=== PATIENT | female | born 1990 | race African-American/Black ===

== ENCOUNTER 2017-04-05 21:16 | Emergency (ER) | payer OTHER ==
[~2017-04-05] VITALS: Ht 157.5 cm; Wt 62.0 kg
[2017-04-06] MEDS ORDERED: SODIUM CHLORIDE 0.9% 1,000 ML IV ONE (06:20)
[2017-04-06] MEDS ORDERED: ONDANSETRON HCL 4MG/2ML VIAL IV STA (06:20)
[2017-04-06] MEDS ORDERED: MAGNESIUM/ALUMINUM HYDROXIDE/SIMETHICONE 30ML UDC PO STA (06:38)
[2017-04-06] MEDS ORDERED: FAMOTIDINE 20MG/2ML VIAL IV STA (06:38)
[2017-04-06 06:41] LABS: BASOPHILS % 0.8 % (0.0-2.0); EOSINOPHILS % 0.7 % (0.0-5.0); HEMATOCRIT. 39.8 % (36.0-48.0); HEMOGLOBIN. 13.6 g/dL (12.0-16.0); LYMPHOCYTES % 49.6 % (20.0-50.0); MEAN CORPUSCULAR HEMOGLOBIN 29.3 pg (28.0-32.0); MEAN PLATELET VOLUME 9.4 fl (7.4-10.4); MONOCYTES % 11.3 % (2.0-8.0); NEUTROPHILS % 37.6 % (40.0-76.0); PLATELET 196 x1000/uL (130-400); RED BLOOD CELL COUNT 4.63 mill/uL (4.2-5.4)
[2017-04-06 06:48] LABS: CHLORIDE 104 mEq/L (98-107); INR 1.1
[2017-04-06 06:57] LABS: CARBON DIOXIDE 26 mEq/L (21-32)
[2017-04-06 07:09] LABS: CLARITY URINE CLOUDY (CLEAR); COLOR URINE DARK YELLOW (YELLOW); KETONES URINE 3+ (NEGATIVE); LEUKOCYTE ESTERASE URINE TRACE (NEGATIVE); NITRITE URINE NEGATIVE (NEGATIVE); OCCULT BLOOD URINE NEGATIVE (NEGATIVE); PH URINE 5.5 (4.5-8.0); PROTEIN URINE 1+ (NEGATIVE); SPECIFIC GRAVITY URINE 1.035 (1.005-1.030)
[2017-04-06 07:10] LABS: HCG SCREEN NEGATIVE
[2017-04-06] MEDS ORDERED: DEPER5 PO (07:44)
[2017-04-06] MEDS ORDERED: ALBU2SYR PO (07:46)
[2017-04-06 09:08] VITALS: BP 122/60
== END 2017-04-06 09:09 | disposition home or self-care (01) ==
LOC: ER 22:39
DX: N39.0 Urinary tract infection, site not specified (principal); R11.2 Nausea with vomiting, unspecified; F12.10 Cannabis abuse, uncomplicated; Z98.890 Other specified postprocedural states
CPT/HCPCS: 36415; 76700; 80053; 81001; 83690; 84703; 85025; 85610; 96361; 96374; 96375; 99285; J2405; J3490; J7030; Z7610

== ENCOUNTER 2018-07-31 23:35 | Emergency (ER) | payer OTHER ==
[~2018-07-31] VITALS: Ht 157.5 cm; Wt 64.0 kg
[~2018-07-31 23:35] MED LIST: ALBU2SYR3 PO; DEPER5 PO
[2018-08-01] MEDS ORDERED: MORPHINE SULFATE 4 MG/ML CPJ (NOT FOR IM USE) IV STA (00:41)
[2018-08-01] MEDS ORDERED: ONDANSETRON HCL 4MG/2ML INJ IV STA (00:41)
[2018-08-01] MEDS ORDERED: SODIUM CHLORIDE 0.9% 1,000 ML IV ONE ×2 (00:41→02:09)
[2018-08-01] MEDS ORDERED: KETOROLAC 30MG/ML VIAL IV STA (00:41)
[2018-08-01 00:58] LABS: BASOPHILS % 0.4 % (0.0-2.0); EOSINOPHILS % 0.1 % (0.0-5.0); HEMATOCRIT. 39.2 % (36.0-48.0); HEMOGLOBIN. 13.5 g/dL (12.0-16.0); LYMPHOCYTES % 17.3 % (20.0-50.0); MEAN CORPUSCULAR HEMOGLOBIN 30.7 pg (28.0-32.0); MEAN CORPUSCULAR VOLUME 89.2 fL (81.0-99.0); MEAN PLATELET VOLUME 8.9 fl (7.4-10.4); NEUTROPHILS % 75.2 % (40.0-76.0); PLATELET 237 x1000/uL (130-400); RED BLOOD CELL COUNT 4.39 mill/uL (4.2-5.4); RED CELL DISTRIBUTION WIDTH 13.3 % (11.6-14.6)
[2018-08-01 01:02] LABS: CHLORIDE 105 mEq/L (98-107)
[2018-08-01 01:03] LABS: CLARITY URINE CLOUDY (CLEAR); COLOR URINE YELLOW (YELLOW); KETONES URINE TRACE (NEGATIVE); LEUKOCYTE ESTERASE URINE NEGATIVE (NEGATIVE); NITRITE URINE NEGATIVE (NEGATIVE); OCCULT BLOOD URINE TRACE (NEGATIVE); PH URINE 5.5 (4.5-8.0); PROTEIN URINE NEGATIVE (NEGATIVE); SPECIFIC GRAVITY URINE 1.033 (1.005-1.030)
[2018-08-01 01:06] LABS: HCG SCREEN NEGATIVE
[2018-08-01] MEDS ORDERED: AMOXICILLIN/POTASSIUM CLAVULANATE 875/125MG TAB PO ONE (02:15)
[2018-08-01 06:50] VITALS: BP 101/41
== END 2018-08-01 06:50 | disposition home or self-care (01) ==
LOC: ER 23:35
DX: R51 Headache (principal); R05 Cough; F12.10 Cannabis abuse, uncomplicated; J45.909 Unspecified asthma, uncomplicated; Z98.890 Other specified postprocedural states
CPT/HCPCS: 36415; 70450; 71045; 80053; 81003; 81025; 83690; 84484; 84703; 85025; 85651; 96374; 96375; 99284; J1885; J2270; J2405; J7030; Z7610

== ENCOUNTER 2018-10-07 22:07 | Emergency (ER) | payer OTHER ==
[~2018-10-07] VITALS: Ht 160 cm; Wt 69.0 kg
[2018-10-08] MEDS ORDERED: SODIUM CHLORIDE 0.9% 1,000 ML IV ONE (00:09)
[2018-10-08] MEDS ORDERED: ONDANSETRON HCL 4MG/2ML INJ IV ONE (00:15)
[2018-10-08] MEDS ORDERED: MORPHINE SULFATE 4 MG/ML CPJ (NOT FOR IM USE) IV ONE (00:15)
[2018-10-08 00:48] LABS: BASOPHILS % 0.5 % (0.0-2.0); EOSINOPHILS % 1.6 % (0.0-5.0); HEMATOCRIT. 37.9 % (36.0-48.0); LYMPHOCYTES % 35.5 % (20.0-50.0); MEAN CORPUSCULAR HEMOGLOBIN 30.5 pg (28.0-32.0); MEAN CORPUSCULAR VOLUME 88.8 fL (81.0-99.0); MEAN PLATELET VOLUME 8.6 fl (7.4-10.4); MONOCYTES % 10.9 % (2.0-8.0); NEUTROPHILS % 51.5 % (40.0-76.0); PLATELET 242 x1000/uL (130-400); RED BLOOD CELL COUNT 4.26 mill/uL (4.2-5.4); RED CELL DISTRIBUTION WIDTH 13.2 % (11.6-14.6)
[2018-10-08 00:53] LABS: CHLORIDE 105 mEq/L (98-107)
[2018-10-08 01:18] LABS: B-HCG QUANTITATIVE 51452 mIU/mL (<3)
[2018-10-08 03:16] LABS: CLARITY URINE CLOUDY (CLEAR); COLOR URINE YELLOW (YELLOW); KETONES URINE NEGATIVE (NEGATIVE); LEUKOCYTE ESTERASE URINE NEGATIVE (NEGATIVE); NITRITE URINE NEGATIVE (NEGATIVE); OCCULT BLOOD URINE NEGATIVE (NEGATIVE); PH URINE 6.5 (4.5-8.0); PROTEIN URINE NEGATIVE (NEGATIVE); SPECIFIC GRAVITY URINE 1.023 (1.005-1.030); UROBILINOGEN URINE 0.2 E.U./dL (0.2-1.0)
[2018-10-08 05:20] VITALS: BP 114/73
== END 2018-10-08 05:21 | disposition home or self-care (01) ==
LOC: ER 22:26
DX: O23.41 Unspecified infection of urinary tract in pregnancy, first trimester (principal); O21.9 Vomiting of pregnancy, unspecified; O34.81 Maternal care for other abnormalities of pelvic organs, first trimester; N83.209 Unspecified ovarian cyst, unspecified side; F12.10 Cannabis abuse, uncomplicated; J45.909 Unspecified asthma, uncomplicated; Z98.890 Other specified postprocedural states; Z3A.00 Weeks of gestation of pregnancy not specified
CPT/HCPCS: 36415; 76830; 76856; 80053; 81003; 81025; 84702; 85025; 86850; 86900; 86901; 96361; 96374; 96375; 99284; J2270; J2405; J7030; Z7610

== ENCOUNTER 2019-01-16 12:12 | Emergency (ER) | payer OTHER ==
[~2019-01-16] VITALS: Ht 157.5 cm; Wt 68.0 kg
[2019-01-16] MEDS ORDERED: SODIUM CHLORIDE 0.9% 1,000 ML IV ONE (12:32)
[2019-01-16] MEDS ORDERED: DIPHENHYDRAMINE 50MG/ML VIAL IV ONE (12:45)
[2019-01-16 12:51] LABS: BASOPHILS % 0.4 % (0.0-2.0); EOSINOPHILS % 1.3 % (0.0-5.0); HEMATOCRIT. 32.8 % (36.0-48.0); HEMOGLOBIN. 11.4 g/dL (12.0-16.0); LYMPHOCYTES % 19.2 % (20.0-50.0); MEAN CORPUSCULAR HEMOGLOBIN 30.4 pg (28.0-32.0); MEAN CORPUSCULAR VOLUME 87.7 fL (81.0-99.0); MEAN PLATELET VOLUME 9.6 fl (7.4-10.4); MONOCYTES % 9.8 % (2.0-8.0); NEUTROPHILS % 69.3 % (40.0-76.0); PLATELET 214 x1000/uL (130-400); RED BLOOD CELL COUNT 3.74 mill/uL (4.2-5.4); RED CELL DISTRIBUTION WIDTH 13.2 % (11.6-14.6)
[2019-01-16 12:52] LABS: CLARITY URINE TURBID (CLEAR); COLOR URINE ORANGE (YELLOW); KETONES URINE NEGATIVE (NEGATIVE); LEUKOCYTE ESTERASE URINE NEGATIVE (NEGATIVE); NITRITE URINE NEGATIVE (NEGATIVE); OCCULT BLOOD URINE NEGATIVE (NEGATIVE); PH URINE 7.5 (4.5-8.0); PROTEIN URINE NEGATIVE (NEGATIVE); SPECIFIC GRAVITY URINE 1.021 (1.005-1.030); UROBILINOGEN URINE 0.2 E.U./dL (0.2-1.0)
[2019-01-16 13:05] LABS: CHLORIDE 108 mEq/L (98-107)
[2019-01-16 13:27] LABS: B-HCG QUANTITATIVE 2579 mIU/mL (<3)
[2019-01-16 16:40] VITALS: BP 113/62
== END 2019-01-16 16:44 | disposition home or self-care (01) ==
LOC: ER 12:12
DX: T78.40XA Allergy, unspecified, initial encounter (principal); X58.XXXA Exposure to other specified factors, initial encounter; O26.892 Other specified pregnancy related conditions, second trimester; O23.42 Unspecified infection of urinary tract in pregnancy, second trimester; R10.9 Unspecified abdominal pain; J45.909 Unspecified asthma, uncomplicated; Z3A.22 22 weeks gestation of pregnancy
CPT/HCPCS: 36415; 76805; 76817; 80053; 81003; 81025; 84702; 85025; 86850; 86900; 86901; 96374; 99284; J1200; J7030

== ENCOUNTER 2019-02-17 16:55 | Observation (INO) | payer OTHER ==
[~2019-02-17] VITALS: Ht 157.5 cm; Wt 78.9 kg
[2019-02-17] MEDS ORDERED: LACTATED RINGERS 1,000 ML IV NR (17:36)
[2019-02-17] MEDS ORDERED: LACTATED RINGERS 1,000 ML IV SCH (17:36)
[2019-02-17] MEDS ORDERED: ONDANSETRON HCL 4MG/2ML INJ IV NR (17:45)
[2019-02-17] MEDS ORDERED: ACETAMINOPHEN 500MG TABLET PO PRN (17:45)
[2019-02-17 18:20] LABS: CHLORIDE 106 mEq/L (98-107)
[2019-02-17 18:20] LABS: CLARITY URINE CLOUDY (CLEAR); COLOR URINE YELLOW (YELLOW); KETONES URINE 1+ (NEGATIVE); LEUKOCYTE ESTERASE URINE NEGATIVE (NEGATIVE); NITRITE URINE NEGATIVE (NEGATIVE); OCCULT BLOOD URINE NEGATIVE (NEGATIVE); PROTEIN URINE TRACE (NEGATIVE); SPECIFIC GRAVITY URINE 1.021 (1.005-1.030)
[2019-02-17 18:25] LABS: HEMATOCRIT 32.6 % (36.0-48.0); HEMOGLOBIN 11.1 g/dL (12.0-16.0); MEAN CORPUSCULAR HEMOGLOBIN 28.8 pg (28.0-32.0); MEAN CORPUSCULAR VOLUME 84.3 fL (81.0-99.0); PLATELET 187 x1000/uL (130-400); RED BLOOD CELL COUNT 3.86 mill/uL (4.2-5.4); RED CELL DISTRIBUTION WIDTH 13.2 % (11.6-14.6)
[2019-02-17] MEDS ORDERED: CITRIC ACID/SODIUM CITRATE SOLN 30ML UDC PO NR (18:45)
== END 2019-02-17 20:25 | disposition home or self-care (01) ==
LOC: 8 EST LDRP 16:55
PROVIDERS: ADMIT Obstetrics & Gynecology; ATTEND Obstetrics & Gynecology
DX: O21.2 Late vomiting of pregnancy (principal); O26.892 Other specified pregnancy related conditions, second trimester; R53.1 Weakness; Z3A.27 27 weeks gestation of pregnancy
CPT/HCPCS: 36415; 80053; 81003; 85027; 96361; 96374; 99281; G0378; J2405; 96360

== ENCOUNTER 2020-07-22 20:28 | Emergency (ER) | payer OTHER ==
[~2020-07-22] VITALS: Ht 157.5 cm; Wt 71.0 kg
[~2020-07-22 20:28] MED LIST changes: -DEPER5 PO
[2020-07-22] MEDS ORDERED: ACETAMINOPHEN 325MG TABLET PO ONE (22:15)
[2020-07-22] MEDS ORDERED: ONDANSETRON HCL 4MG/2ML INJ IV STA (22:27)
[2020-07-22] MEDS ORDERED: MAGNESIUM 1 G PREMIX 100 ML IV ONE (22:30)
[2020-07-22] MEDS ORDERED: SODIUM CHLORIDE 0.9% 1,000 ML IV ONE (22:30)
[2020-07-22] MEDS: VISCOUS LIDOCAINE 2% 15 ML UDC PO STA ×2 (23:05→23:10)
[2020-07-22] MEDS: MAGNESIUM/ALUMINUM HYDROXIDE/SIMETHICONE 30ML UDC PO STA ×3 (23:06→23:47)
[2020-07-22 23:09] LABS: BASOPHILS % 0.8 % (0.0-2.0); EOSINOPHILS % 2.1 % (0.0-5.0); HEMATOCRIT. 37.6 % (36.0-48.0); HEMOGLOBIN. 12.8 g/dL (12.0-16.0); LYMPHOCYTES % 22.5 % (20.0-50.0); MEAN CORPUSCULAR HEMOGLOBIN 29.4 pg (28.0-32.0); MEAN CORPUSCULAR VOLUME 86.2 fL (81.0-99.0); MEAN PLATELET VOLUME 9.5 fl (7.4-10.4); MONOCYTES % 6.9 % (2.0-8.0); NEUTROPHILS % 67.7 % (40.0-76.0); PLATELET 207 x1000/uL (130-400); RED BLOOD CELL COUNT 4.37 mill/uL (4.2-5.4); RED CELL DISTRIBUTION WIDTH 16.2 % (11.6-14.6)
[2020-07-22 23:15] LABS: CHLORIDE 108 mEq/L (98-107)
[2020-07-22 23:16] LABS: CLARITY URINE TURBID (CLEAR); COLOR URINE ORANGE (YELLOW); KETONES URINE 1+ (NEGATIVE); LEUKOCYTE ESTERASE URINE TRACE (NEGATIVE); NITRITE URINE NEGATIVE (NEGATIVE); OCCULT BLOOD URINE 3+ (NEGATIVE); PH URINE 6.5 (4.5-8.0); PROTEIN URINE 2+ (NEGATIVE); SPECIFIC GRAVITY URINE 1.025 (1.005-1.030)
[2020-07-22 23:19] LABS: ETHANOL BLOOD < 10 mg/dL
[2020-07-22 23:29] LABS: *AMPHETAMINES SCREEN URINE NEGATIVE (NEGATIVE); *BARBITURATES SCREEN URINE NEGATIVE (NEGATIVE)
[2020-07-22 23:30] LABS: *BENZODIAZEPINES SCREEN URINE NEGATIVE (NEGATIVE); *COCAINE SCREEN URINE NEGATIVE (NEGATIVE); METHADONE URINE SCREEN NEGATIVE (NEGATIVE); OPIATES URINE SCREEN NEGATIVE (NEGATIVE); PHENCYCLIDINE URINE SCREEN NEGATIVE (NEGATIVE)
[2020-07-22 23:53] LABS: CANNABINOID URINE SCREEN PRESUMTIVE POSITIVE (NEGATIVE)
[2020-07-23] MEDS ORDERED: METOCLOPRAMIDE HCL 10MG/2ML VIAL IV ONE (00:30)
[2020-07-23] MEDS ORDERED: KETOROLAC 15MG/ML VIAL IV ONE (00:30)
[2020-07-23 00:40] LABS: HCG SCREEN NEGATIVE
[2020-07-23 02:20] VITALS: BP 112/65
== END 2020-07-23 04:35 | disposition home or self-care (01) ==
LOC: ER 20:28
DX: R51.9 Headache, unspecified (principal); J45.909 Unspecified asthma, uncomplicated; Z98.890 Other specified postprocedural states
CPT/HCPCS: 36415; 80053; 80305; 80320; 81003; 81025; 82140; 84443; 84703; 85025; 86850; 86900; 96365; 96366; 96375; 99285; J1885; J2405; J2765; J3475; J7030; G0480

== ENCOUNTER 2020-07-24 08:24 | Emergency (ER) | payer OTHER ==
[~2020-07-24] VITALS: Ht 165.1 cm; Wt 91.0 kg
[2020-07-24] MEDS ORDERED: FAMOTIDINE 20MG/2ML VIAL IV STA (09:47)
[2020-07-24] MEDS ORDERED: METOCLOPRAMIDE HCL 10MG/2ML VIAL IV STA (09:47)
[2020-07-24] MEDS ORDERED: KETOROLAC 30MG/ML VIAL IV STA (09:47)
[2020-07-24] MEDS ORDERED: SODIUM CHLORIDE 0.9% 1,000 ML IV ONE ×2 (10:00→11:30)
[2020-07-24 10:05] LABS: BASOPHILS % 0.8 % (0.0-2.0); EOSINOPHILS % 3.2 % (0.0-5.0); HEMATOCRIT. 38.5 % (36.0-48.0); HEMOGLOBIN. 13.1 g/dL (12.0-16.0); LYMPHOCYTES % 39.8 % (20.0-50.0); MEAN CORPUSCULAR HEMOGLOBIN 29.4 pg (28.0-32.0); MEAN CORPUSCULAR VOLUME 86.6 fL (81.0-99.0); MEAN PLATELET VOLUME 10.4 fl (7.4-10.4); MONOCYTES % 10.9 % (2.0-8.0); NEUTROPHILS % 45.3 % (40.0-76.0); PLATELET 223 x1000/uL (130-400); RED BLOOD CELL COUNT 4.45 mill/uL (4.2-5.4); RED CELL DISTRIBUTION WIDTH 16.1 % (11.6-14.6)
[2020-07-24 10:07] LABS: CHLORIDE 107 mEq/L (98-107)
[2020-07-24 10:14] LABS: ETHANOL BLOOD < 10 mg/dL; PROTHROMBIN TIME 10.7 sec (9.6-11.0)
[2020-07-24 10:24] LABS: CLARITY URINE TURBID (CLEAR); COLOR URINE RED (YELLOW); KETONES URINE 4+ (NEGATIVE); LEUKOCYTE ESTERASE URINE 1+ (NEGATIVE); NITRITE URINE NEGATIVE (NEGATIVE); OCCULT BLOOD URINE 3+ (NEGATIVE); PH URINE 5.5 (4.5-8.0); PROTEIN URINE 2+ (NEGATIVE); SPECIFIC GRAVITY URINE 1.034 (1.005-1.030); UROBILINOGEN URINE 0.2 E.U./dL (0.2-1.0)
[2020-07-24 10:28] LABS: HCG SCREEN NEGATIVE
[2020-07-24] MEDS ORDERED: ONDANSETRON HCL 4MG/2ML INJ IV STA (11:23)
[2020-07-24] MEDS ORDERED: CEFTRIAXONE 1 G PREMIX 50 ML IV ONE (11:30)
[2020-07-24] MEDS ORDERED: HYDROCODONE/ACETAMINOPHEN 5/325MG TABLET PO STA (11:36)
[2020-07-24] MEDS ORDERED: HYDROCODONE/ACETAMINOPHEN 5/325MG TABLET PO ONE (20:30)
[2020-07-24] MEDS ORDERED: ONDANSETRON HCL 4MG/2ML INJ IV ONE (21:15)
[2020-07-24 22:02] VITALS: BP 110/81
== END 2020-07-25 00:23 | disposition admitted as inpatient to this hospital (09) ==
LOC: ER 08:44
DX: K85.90 Acute pancreatitis without necrosis or infection, unspecified (principal); N39.0 Urinary tract infection, site not specified; R51.9 Headache, unspecified; I49.8 Other specified cardiac arrhythmias; Z20.822 Contact with and (suspected) exposure to COVID-19; J45.909 Unspecified asthma, uncomplicated; F12.10 Cannabis abuse, uncomplicated
CPT/HCPCS: 36415; 71045; 80053; 80320; 81003; 81025; 83690; 84703; 85025; 85610; 87040; 87086; 87426; 93005; 96361; 96365; 96375; 96376; 99285; J0696; J1885; J2405; J2765; J3490; J7030; G0480

== ENCOUNTER 2022-07-11 09:12 | Emergency (ER) | payer OTHER | END 2022-07-11 10:15 | disposition left against medical advice (07) | LOC: ER 09:12 | DX: Z53.21 Procedure and treatment not carried out due to patient leaving prior to being seen by health care provider (principal) ==